=== PATIENT | male | born 1960 | race Caucasian/White ===

== ENCOUNTER 2016-11-25 06:44 | Day surgery (SDC) | payer BC, OTHER ==
[2016-11-24 14:06] VITALS: BMI 37.3
[2016-11-25] MEDS ORDERED: BUPIVACAINE HCL/PF 0.5% (5MG/ML) 10 ML VIAL ONE (07:45)
[2016-11-25] MEDS ORDERED: LIDOCAINE HCL 1%, 10 MG/ML (20ML VIAL) ONE (07:45)
[2016-11-25] MEDS ORDERED: LIDOCAINE HCL/PF 2% SDV 5ML VIAL ONE (07:53)
[2016-11-25] MEDS ORDERED: MIDAZOLAM HCL 2 MG/2 ML SINGLE DOSE VIAL ONE (07:53)
[2016-11-25] MEDS ORDERED: PROPOFOL 20 ML ONE ×2 (07:53)
[2016-11-25] MEDS ORDERED: ceFAZolin SODIUM 1 GM VIAL ONE (07:56)
[2016-11-25] MEDS ORDERED: ceFAZolin SODIUM 1 GM VIAL IVPB ONE (08:16)
[2016-11-25] MEDS ORDERED: KETOROLAC TROMETHAMINE 30 MG/1 ML VIAL ONE (08:33)
[2016-11-25] MEDS ORDERED: oxyCODONE HCL 5 MG TABLET PO PRN (08:34)
[2016-11-25] MEDS ORDERED: ONDANSETRON 4 MG/2 ML VIAL IVPUSH PRN (08:34)
[2016-11-25] MEDS ORDERED: ACETAMINOPHEN 1000 MG/100 ML VIAL (NON FORMULARY) IVPB ONE (08:37)
[2016-11-25] MEDS ORDERED: BUPIVACAINE HCL/PF 0.5% (5MG/ML) 10 ML VIAL IJ ONE (08:39)
--- NOTE | 2016-11-25 08:41 | HP ---
Satellite [facility] - Chief Complaint Chief Complaint: left knee pain - Past Medical History Allergies/Adverse Reactions: Allergies Allergy/AdvReac Type Severity Reaction Status Date / Time No Known Drug Allergies Allergy Verified 11/24/16 14:06 - Current Medications Current Medications: Home Medications Medication Instructions Recorded Hydrocodone/Acetaminophen 1 each PO Q6H #40 tablet MDD 4 11/25/16 [Hydrocodon-Acetaminoph 7.5-325] Satellite Physical Exam - Physical Examination Vital Signs: Vital Signs Period Temp Pulse Resp BP Sys/Pfeiffer Pulse Ox Last 24 Hr 97.7 F 74 20 139/91 96 General Appearance: Well Nourished, Well Developed, Alert & Oriented x3 ENT: Clear Lung: Normal air movement Heart: Regular rate & rhythm Extremities: Other (left knee- + swelling, + ttp, decr rom, + mcmurrays, +apleys , nvi) Neurological: Intact, Alert, Oriented Satellite Impression/Plan - Impression/Plan Impression: left knee internal derangement Operative Procedure: left knee arthroscopy Date to be Performed: 11/25/16
[2016-11-25] MEDS ORDERED: LACTATED RINGERS SOLUTION 1,000 ML IV SCH (08:45)
--- NOTE | 2016-11-25 08:47 | OP ---
Operative Note - Note: Operative Date: 11/25/16 ([facility]) Pre-Operative Diagnosis: left knee mmt Operation: left knee arthroscopy with PMM, debridement chondroplasty Post-Operative Diagnosis: Same as Pre-op Surgeon: Joe Wilson Refinery Operator Visbreaking: Grant Coffman Anesthesiologist/GAS SUBSTATION OPERATOR: Flora Alcantara Anesthesia: General, Local Specimens Removed: shavings Estimated Blood Loss (mls): 5 Operative Report Dictated: Yes
[2016-11-25] MEDS ORDERED: ACETAMINOPHEN INJECTION 100 ML IVPB ONE (09:49)
[2016-11-25 10:04] VITALS: TEMP 97.4
[2016-11-25 15:58] VITALS: BP 148/61; PULSE 98
--- NOTE | 2016-11-25 18:43 | OP ---
DATE OF OPERATION: DATE OF DICTATION: 11/25/2016 PREOPERATIVE DIAGNOSIS: Left knee medial meniscus tear and osteoarthritis. POSTOPERATIVE DIAGNOSIS: Left knee medial meniscus tear and osteoarthritis. PROCEDURE: Left knee arthroscopy, partial medial meniscectomy and debridement chondroplasty. SURGEON: Joe Wilson M.D. REHAB DEPARTMENT MANAGER: Grant Coffman M.D. ANESTHESIOLOGIST: Flora Alcantara M.D. BLOOD LOSS: None. BLOOD GIVEN: None. FLUID REPLACEMENT: 500 mL Plasmalyte. SPECIMEN: Arthroscopic shavings. DRAINS: None. INDICATION: The patient is a 56-year-old male with the preoperative diagnosis of a left knee medial meniscus tear and possible osteoarthritis. After understanding the potential risks, complications, alternatives, benefits to surgery versus nonsurgical treatment, the patient elected to pursue this procedure. PROCEDURE: The patient was brought to the operating room, peripheral IV placed, IV sedation given. 1 g of IV Ancef was given. Tourniquet was applied to the left lower thigh and with the C-clamp leg arambula and the Styrofoam ring. The left lower extremity was prepped and draped in a sterile fashion, elevated, exsanguinated with an Esmarch bandage and tourniquet inflated to 275 mm of mercury. A superior medial outflow portal was established. A lateral portal was established and a diagnostic arthroscopy was performed. Under direct visualization the spinal needle was used to establish a medial portal and a probe was introduced into the medial portal. The patient was seen to have a complex tear of the posterior horn of the medial meniscus. This was debrided with a left biter, curved up biter, and a curved shaver. In the medial compartment, the patient had grade 1 changes on the medial femoral condyle and medial tibial plateau, but overall the arthritis was not that bad in the medial compartment. Next our attention was turned to the intercondylar notch. The ACL looked good. It was probed and had the appropriate tension. The lateral compartment was directly visualized. The lateral meniscus looked fine. The lateral femoral condyle looked good. There was grade 1 to grade 2 change in the lateral tibial plateau; this was left alone. Next, our attention turned to the patellofemoral joint. 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 A debridement chondroplasty was performed on both of these areas, photographs were taken. The area was copiously irrigated and washed out. All excess saline removed. The arthroscopy portals were closed with 3-0 nylon sutures. Then 20 mL 0.5% Marcaine was introduced into the joint. The area was then covered with Xeroform gauze, 4x4 gauze, Webril and BROCK bandage. The tourniquet was taken down after a total tourniquet time of 16 minutes. There were no complications during the case and the patient tolerated the procedure well and was brought to the ambulatory recovery room in stable condition. John [id number]
--- NOTE | 2016-11-26 16:50 | PATH ---
Surgical Pathology Report Patient Name: JUAN HU [facility]. Rec. #: [id number] /Age/Gender: 1960 (Age: 56) / M Account: [id number] Location: [facility] Taken: 11/25/2016 Received: 11/25/2016 Reported: 11/26/2016 Physicians: Joe Wilson M.D. Specimen(s) Received LEFT KNEE SHAVINGS Clinical History Left knee internal derangement Final Diagnosis KNEE, LEFT, ARTHROSCOPIC SHAVING: FIBROCARTILAGE WITH MYXOID DEGENERATIVE CHANGES, ALONG WITH PORTIONS OF SYNOVIUM AND HYALINE CARTILAGE. Electronically Signed Coy Huang M.D. Gross Description Received in formalin, labeled "left knee shavings," is a 4.0 x 3.0 x 0.4 cm. aggregate of marinelli-yellow soft tissue fragments. A farm loan representative portion is submitted in one cassette. /11/25/201611/25/2016
== END 2016-11-25 13:45 | disposition home or self-care (01) ==
LOC: JASU-SURG 06:44
PROVIDERS: ATTEND Orthopaedic Surgery
PROC: 0SBD4ZZ Excision of Left Knee Joint, Percutaneous Endoscopic Approach (ICD-10-PCS; principal; 2016-11-25 08:00)
DX: M23.204 Derangement of unspecified medial meniscus due to old tear or injury, left knee (principal); M17.12 Unilateral primary osteoarthritis, left knee
CPT/HCPCS: 88304-TC; 94760

== ENCOUNTER 2018-01-12 06:20 | Day surgery (SDC) | payer BC, OTHER ==
[2018-01-11 16:07] VITALS: BMI 38.0
[2018-01-12] MEDS ORDERED: DESFLURANE GAS 240 ML BOTTLE IH ONE (07:23)
[2018-01-12] MEDS ORDERED: LIDOCAINE HCL 2% JELLY (5 ML/TUBE) ONE (07:24)
[2018-01-12] MEDS ORDERED: fentaNYL CITRATE 250 MCG/5 ML VIAL ONE (07:31)
[2018-01-12] MEDS ORDERED: MIDAZOLAM HCL 2 MG/2 ML SINGLE DOSE VIAL ONE (07:32)
[2018-01-12] MEDS ORDERED: KETOROLAC TROMETHAMINE 30 MG/1 ML VIAL ONE (07:32)
[2018-01-12] MEDS ORDERED: ceFAZolin SODIUM 1 GM VIAL ONE (07:32)
[2018-01-12] MEDS ORDERED: LIDOCAINE HCL/PF 2% SDV 5ML VIAL ONE (07:32)
[2018-01-12] MEDS ORDERED: PROPOFOL 20 ML ONE ×2 (07:32)
[2018-01-12] MEDS ORDERED: DEXAMETHASONE SOD PHOSPHATE 4 MG/1 ML VIAL ONE (07:32)
[2018-01-12] MEDS ORDERED: SUCCINYLCHOLINE CHLORIDE 200 MG/10 ML VIAL ONE (07:33)
[2018-01-12] MEDS ORDERED: oxyCODONE HCL 5 MG TABLET PO PRN (07:39)
[2018-01-12] MEDS ORDERED: ONDANSETRON 4 MG/2 ML VIAL IVPUSH PRN (07:39)
[2018-01-12] MEDS ORDERED: LACTATED RINGERS SOLUTION 1,000 ML IV SCH (07:45)
[2018-01-12] MEDS ORDERED: LIDOCAINE 1%/EPI 1:100000 (20 ML MULTI DOSE VIAL) ONE (07:50)
[2018-01-12] MEDS ORDERED: BUPIVACAINE HCL/PF 0.5% (5MG/ML) 10 ML VIAL ONE (07:51)
--- NOTE | 2018-01-12 08:13 | HP ---
Satellite [facility] - Chief Complaint Chief Complaint: right knee pain History of Present Illness: right knee medial and lateral meniscus tears, OA, loose bodies History Source: Patient Limitations to Obtaining History: No Limitations - Past Medical History Allergies/Adverse Reactions: Allergies Allergy/AdvReac Type Severity Reaction Status Date / Time No Known Drug Allergies Allergy Verified 01/11/18 16:12 - Current Medications Current Medications: Home Medications Medication Instructions Recorded Aspirin 81 mg PO DAILY 01/12/18 Satellite Physical Exam - Physical Examination Vital Signs: Vital Signs Period Temp Pulse Resp BP Sys/Pfeiffer Pulse Ox Last 24 Hr 97.4 F-97.4 F 64-64 20-20 139-139/94-94 97 General Appearance: Well Nourished ENT: Clear Lung: Clear to auscultation Heart: Regular rate & rhythm Breasts: Soft Abdomen: Soft Extremities: No edema Satellite Impression/Plan - Impression/Plan Impression: right knee medial and lateral meniscus tears, OA, loose bodies Operative Procedure: right knee arthroscopy Date to be Performed: 01/12/18
[2018-01-12] MEDS ORDERED: BUPIVACAINE 0.75% IN DEXTROSE/PF 2ML AMPULE NR ONE (08:15)
[2018-01-12] MEDS ORDERED: ceFAZolin SODIUM 1 GM VIAL IVPB ONE (08:21)
--- NOTE | 2018-01-12 09:24 | OP ---
Operative Note - Note: Operative Date: 01/12/18 Pre-Operative Diagnosis: right knee pain, medial and lateral meniscus tears, OA , loose bodies Operation: right knee arthroscopy, partial medial and lateral meniscectomies, debridement chondroplasty, removal of loose bodies Post-Operative Diagnosis: Same as Pre-op Surgeon: Joe Wilson Bag Mender: Grant Coffman Anesthesiologist/ADULT SERVICES LIBRARIAN: David Wiley Anesthesia: Spinal, MAC Specimens Removed: loose bodies x 3, shavings Estimated Blood Loss (mls): 0 Blood Volume Replaced (mls): 0 Fluid Volume Replaced (mls): 500 Operative Report Dictated: Yes
--- NOTE | 2018-01-12 10:14 | OP ---
DATE OF OPERATION: 01/12/2018 PREOPERATIVE DIAGNOSIS: Right knee pain, medial and lateral meniscus tears, loose bodies, and osteoarthritis. POSTOPERATIVE DIAGNOSIS: Right knee pain, medial and lateral meniscus tears, loose bodies, and osteoarthritis. PROCEDURE: Right knee arthroscopy, partial medial and lateral meniscectomies, debridement chondroplasty, and removal of multiple loose bodies. SURGEON: Joe Wilson MD BRICKLAYER: Grant Coffman MD ANESTHESIA: Spinal anesthesia with sedation. . DRAINS: None. COMPLICATIONS: None. SPECIMENS: Three loose bodies and arthroscopic shavings. BLOOD LOSS: None. BLOOD GIVEN: None. FLUID REPLACEMENT: PlasmaLyte, 500 mL. SPORTS STATISTICIAN: EBER Wiley INDICATIONS: This patient is a 57-year-old male with a preoperative diagnosis of right knee pain, medial and lateral meniscus tears, loose bodies, and osteoarthritis. After understanding the potential risks and complications, as well as the alternatives and benefits, the patient elected to undergo this procedure. DESCRIPTION OF PROCEDURE: The patient was brought to the operating room, peripheral IV placed, and IV sedation was given. IV Ancef, 2 g, was given. Spinal anesthesia was induced. MAC anesthesia was applied. The right lower extremity was prepped and draped in sterile fashion. Ample padding was placed throughout. He was placed into the C-clamp leg-arambula, elevated, exsanguinated with an Esmarch bandage, and tourniquet was inflated to 280 mmHg. Case was begun by making a superomedial outflow portal. Outflow portal was established. Arthroscope was introduced into the joint under direct visualization using a spinal needle. The medial portal was established. A diagnostic arthroscopy was performed. In the medial compartment, the patient was seen to have flaps of osteoarthritis of the medial femoral condyle. These were debrided with the shaver. Patient had a significant radial component tear of the posterior horn of the medial meniscus. This was debrided with a straight forceps, the right biting forceps and the shaver. There also was grade 2 to grade 3 changes of the medial tibial plateau. This was debrided, as well. Photographs were taken before and after. Next, our attention turned to the intercondylar notch. When the ACL was found, it was probed and found to have appropriate tension. The patient had a huge loose body which had scarred down in front of the ACL. It was comprised of bone. A shaver and biting forceps were used to remove the adhesive scar tissue, and then Kerry forceps used to remove the specimen, which was then passed off the field. It was a large osteochondral loose body. There were 2 other small loose bodies, which were removed in a similar fashion. Also included in the specimen. In the lateral compartment, patient had some fraying of the lateral meniscus. This was debrided. The patient had mild grade 2 changes of the lateral tibial plateau. The lateral femoral condyle looked fine. Next, our attention turned to the patellofemoral joint, where the patient had significant grade 4 osteoarthritis of both the patella and the femoral trochlea. Debridement chondroplasty was performed in this compartment, as well. The area was copiously irrigated and washed out. All debris and excess saline were removed. The arthroscopy portal was closed with 3-0 nylon sutures. The area was then washed and dried, covered with Xeroform gauze, 4x4 gauze, Webril, and an Leobardo bandage. The tourniquet was taken down after total tourniquet of 26 minutes. There were no complications during the case. The patient tolerated the procedure well, was brought to the ambulatory recovery room in stable condition. John [id number]
[2018-01-12 14:31] VITALS: BP 126/78; PULSE 70; TEMP 97.8
--- NOTE | 2018-01-14 13:27 | PATH ---
Surgical Pathology Report Patient Name: JUAN HU Med. Rec. #: [id number] /Age/Gender: 1960 (Age: 57) / M Account: [id number] Location: [facility] SURGICAL Taken: 01/12/2018 Received: 01/12/2018 Reported: 01/14/2018 Physicians: Grant Coffman M.D. Specimen(s) Received A: RIGHT KNEE SHAVINGS B: LOSE BODY RIGHT KNEE Clinical History Tear right knee Final Diagnosis A. RIGHT KNEE, ARTHROSCOPIC SHAVINGS: PORTIONS OF SYNOVIUM WITH NO SIGNIFICANT PATHOLOGIC CHANGES. B. BONE AND SOFT TISSUE, LEFT KNEE, EXCISION: BONE WITH ATTACHED CARTILAGE AND SYNOVIUM CONSISTENT WITH LOOSE BODY. Electronically Signed Coy Huang M.D. Gross Description A. Received in formalin, labeled "right knee shavings," is a 2 x 1.5 x 0.3cm. aggregate of marinelli-yellow soft tissue fragments. Totally embedded in one cassette. B. Received in formalin labelled "loose body right knee" is 3 pieces of bony and cartilaginous tissue each which is between 0.4 and 1.7 cm in greatest dimension. Load Mixer sections are submitted one cassette for decalcification. [facility]/01/12/2018 [facility]/01/12/2018
== END 2018-01-12 14:31 | disposition home or self-care (01) ==
LOC: JASU-SURG 06:20
PROVIDERS: ATTEND Orthopaedic Surgery
PROC: 0SBC4ZZ Excision of Right Knee Joint, Percutaneous Endoscopic Approach (ICD-10-PCS; 2018-01-12)
PROC: 0SCC4ZZ Extirpation of Matter from Right Knee Joint, Percutaneous Endoscopic Approach (ICD-10-PCS; 2018-01-12)
PROC: 0SBC4ZZ Excision of Right Knee Joint, Percutaneous Endoscopic Approach (ICD-10-PCS; principal; 2018-01-12 08:00)
DX: S83.281A Other tear of lateral meniscus, current injury, right knee, initial encounter (principal); S83.241A Other tear of medial meniscus, current injury, right knee, initial encounter; M17.11 Unilateral primary osteoarthritis, right knee; X58.XXXA Exposure to other specified factors, initial encounter; Y93.9 Activity, unspecified; Y92.9 Unspecified place or not applicable; Y99.9 Unspecified external cause status
CPT/HCPCS: 88304-TC; 88311-TC; 94760

== ENCOUNTER 2022-05-08 20:42 | Emergency (ER) | payer BC, OTHER ==
[2022-05-08 21:02] VITALS: BP 136/88; PULSE 56; RESP 18; TEMP 98; BMI 28.7
[2022-05-08] MEDS ORDERED: BACITRACIN 15 GM TUBE TOPICAL OINTMENT TP ONE (22:10)
[2022-05-08] MEDS ORDERED: DIPHTH,PERTUSS(ACELL),TET 0.5 ML DISP.SYRIN IM ONE ×2 (22:10→22:16)
[2022-05-08] MEDS ORDERED: BACITRACIN 15 GM TUBE TOPICAL OINTMENT ONE (22:18)
== END 2022-05-09 00:22 | disposition home or self-care (01) ==
LOC: JERFT 20:42
PROC: 3E0234Z Introduction of Serum, Toxoid and Vaccine into Muscle, Percutaneous Approach (ICD-10-PCS; principal; 2022-05-08)
DX: S46.911A Strain of unspecified muscle, fascia and tendon at shoulder and upper arm level, right arm, initial encounter (principal); S40.211A Abrasion of right shoulder, initial encounter; V18.0XXA Pedal cycle driver injured in noncollision transport accident in nontraffic accident, initial encounter
CPT/HCPCS: 73030-TC-RT-FY; 90715; 99284-25